=== PATIENT | male | born 1995 | race Two or more races ===

== ENCOUNTER 2018-08-06 17:50 | Emergency (ER) | payer OTHER, SELFPAY ==
[~2018-08-06] VITALS: Ht 172.7 cm; Wt 71.0 kg
[2018-08-06 17:51] VITALS: BP 141/84
== END 2018-08-06 18:56 | disposition home or self-care (01) ==
LOC: ED 18:52
DX: S63.522A Sprain of radiocarpal joint of left wrist, initial encounter (principal); T23.102A Burn of first degree of left hand, unspecified site, initial encounter; T31.0 Burns involving less than 10% of body surface; V49.49XA Driver injured in collision with other motor vehicles in traffic accident, initial encounter; Y93.89 Activity, other specified; Y92.89 Other specified places as the place of occurrence of the external cause; Y99.8 Other external cause status
CPT/HCPCS: 29125; 99283

== ENCOUNTER 2018-08-19 22:05 | Emergency (ER) | payer OTHER ==
[~2018-08-19] VITALS: Ht 170.2 cm; Wt 72.7 kg
--- NOTE | 2018-08-19 22:43 | NUR ---
PT'S IMAGING RESULTS ARE BACK. WAITING FOR PROVIDER
[2018-08-19] MEDS ORDERED: HYDROcodone/APAP 5/325 TABLET PO ONE (23:00)
[2018-08-19] MEDS ORDERED: HYDROcodone/APAP 5/325 TABLET ONE (23:16)
--- NOTE | 2018-08-20 00:31 | NUR ---
pt resting on gurney. rr even and unlabored. waiting for [facility] to arrive
--- NOTE | 2018-08-20 00:59 | NUR ---
called [facility], they don't have anyone to send out yet, they are receiving a lot of calls and it is according to priority. pt is still on list to be seen
[2018-08-20 01:27] VITALS: BP 123/83
== END 2018-08-20 01:29 | disposition home or self-care (01) ==
LOC: ED 23:03
DX: S00.03XA Contusion of scalp, initial encounter (principal); S00.83XA Contusion of other part of head, initial encounter; S80.211A Abrasion, right knee, initial encounter; Y04.0XXA Assault by unarmed brawl or fight, initial encounter; Y93.89 Activity, other specified; Y92.89 Other specified places as the place of occurrence of the external cause; Y99.8 Other external cause status
CPT/HCPCS: 70450; 70486; 72125; 99284